=== PATIENT | male | born 1955 | race Caucasian/White ===

== ENCOUNTER 2018-10-21 23:27 | Inpatient (IN) | payer MEDICARE ==
[2018-10-22] MEDS ORDERED: ASPIRIN PO ONE (00:04)
[2018-10-22 00:32] LABS: Basophils # (Auto) 0.1 K/mm3 (0.0-0.1); Basophils % (Auto) 1.2 % (0.0-1.8); Eosinophils # (Auto) 0.1 K/mm3 (0.0-0.4); Eosinophils % (Auto) 1.8 % (0.0-4.3); Hemoglobin 12.9 gm/dl (11.8-15.2); Lymphocytes # (Auto) 1.9 K/mm3 (1.2-5.4); Lymphocytes % (Auto) 23.7 % (13.4-35.0); Mean Corpuscular HGB Conc 35 % (32-34); Mean Corpuscular Volume 93 fl (84-94); Monocytes # (Auto) 1.2 K/mm3 (0.0-0.8); Monocytes % (Auto) 15.5 % (0.0-7.3); Platelet Count 218 K/mm3 (140-440); Red Cell Distribution Width 15.4 % (13.2-15.2)
--- NOTE | 2018-10-22 00:33 | XRay Report ---
PROCEDURE: XR CHEST 1V AP TECHNIQUE: Chest radiograph single view. HISTORY: Chest Pain COMPARISONS: None . FINDINGS: Heart: Normal. Mediastinum/Vessels: Normal. Lungs/Pleural space: The lungs are hyperinflated. There are no infiltrates or effusions.. Bony thorax: No acute osseous abnormality. Life support devices: None. IMPRESSION: Hyperinflation. No acute process in the chest.. This document is electronically signed by Saman Morelos MD., October 22 2018 12:31:52 AM ET
[2018-10-22 00:54] LABS: BUN/Creatinine Ratio 20; Blood Urea Nitrogen 16 mg/dL (9-20); Calcium 9.2 mg/dL (8.4-10.2); Hemolysis Index 6
[2018-10-22] MEDS ORDERED: DUONEB *Not for PRN Use IH ONE (02:38)
[2018-10-22] MEDS ORDERED: SOLU-Medrol IV ONE (02:38)
--- NOTE | 2018-10-22 02:49 | Emergency Department Report ---
HPI - General Chief Complaint: Dyspnea/Respdistress Time Seen by Provider: 10/22/18 02:30 - HPI HPI: 63-year-old male presents to the emergency department with complaint of a one-day history of some midsternal to left-sided chest pain/tightness and some shortness of breath. Patient presents by EMS but admits to being homeless. He is a tobacco smoker but denies any illicit drug use or alcohol use. He has a past medical history of COPD, coronary artery disease with cardiac stent placed and previous AL, and anemia. He has not taken anything for her symptoms prior to presentation. He does not have a primary care physician or cardiologis t. ED Past Medical Hx - Past Medical History Previous Medical History?: Yes Hx Heart Attack/AMI: Yes Hx COPD: Yes Additional medical history: Anemia - Surgical History Past Surgical History?: Yes Hx Coronary Stent: Yes - Social History Smoking Status: Current Every Day Smoker Substance Use Type: None ED Review of Systems ROS: Stated complaint: SOB Other details as noted in HPI Comment: All other systems reviewed and negative Constitutional: denies: chills, fever Eyes: denies: eye pain, vision change ENT: denies: ear pain, throat pain Respiratory: cough, shortness of breath, wheezing Cardiovascular: chest pain. denies: palpitations Gastrointestinal: denies: abdominal pain, vomiting Genitourinary: denies: dysuria, frequency Musculoskeletal: denies: back pain, arthralgia Skin: denies: rash, lesions Neurological: denies: headache, weakness Physical Exam - Physical Exam Vital Signs: Vital Signs 10/21/18 23:40 Temperature 97.6 F Pulse Rate 69 Respiratory 20 Rate Blood Pressure 125/75 O2 Sat by Pulse 92 Oximetry Physical Exam: GENERAL: The patient is well-developed well-nourished. HENT: Normocephalic. Atraumatic. Patient has moist mucous membranes. EYES: Extraocular motions are intact. NECK: Supple. Trachea is midline. CHEST/LUNGS: Mild wheezing throughout the chest. No tachypnea or accessory muscle use. There is no respiratory distress noted. Chest pain is not reproducible to palpation of the chest wall. HEART/CARDIOVASCULAR: Regular. There is no tachycardia. There is no murmur. ABDOMEN: Abdomen is soft, nontender. Patient has normal bowel sounds. There is no abdominal distention. SKIN: Skin is warm and dry. NEURO: The patient is awake, alert, and oriented. The patient is cooperative. The patient has no focal neurologic deficits. The patient has normal speech. MUSCULOSKELETAL: There is no tenderness or deformity. There is no evidence of acute injury. ED Course Vital Signs 10/21/18 23:40 Temperature 97.6 F Pulse Rate 69 Respiratory 20 Rate Blood Pressure 125/75 O2 Sat by Pulse 92 Oximetry ED Medical Decision Making - Lab Data Result diagrams: 10/22/18 00:06 10/22/18 00:06 - EKG Data -: EKG Interpreted by Me EKG shows normal: sinus rhythm, axis, intervals, QRS complexes, ST-T waves Rate: bradycardia (54 bpm) - EKG Data When compared to previous EKG there are: previous EKG unavailable Interpretation: normal EKG (with mild bradycardia) - Radiology Data Radiology results: image reviewed interpreted by me: Chest x-ray shows some hyperinflation of the lungs but no obvious pneumonia, pleural effusions or pneumothorax. - Medical Decision Making The patient presents to the emergency department with the complaint of some left-sided chest pain/tightness and shortness of breath. He is a tobacco smoker with a history of COPD, coronary artery disease, previous AL and cardiac stent. EKG does not show any signs of ST elevation AL. Patient has negative troponins 2 with thus far and a negative d-dimer. His vital signs stable throughout his ED course. He was given some Solu-Medrol and a DuoNeb due to some mild bronchospasm but does not appear in any respiratory distress. 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 He will be admitted to the hospital for further evaluation and treatment and was accepted for admission by the hospitalist, Dr. Mercado. - Differential Diagnosis AL, PE, Pneumonia, COPD, CHF Critical Care Time: No Critical care attestation.: If time is entered above; I have spent that time in minutes in the direct care of this critically ill patient, excluding procedure time. ED Disposition Clinical Impression: Acute chest pain, Bronchospasm Dyspnea Qualifiers: Dyspnea type: shortness of breath Qualified Code(s): R06.02 - Shortness of breath; R06.00 - Dyspnea, unspecified; R06.01 - Orthopnea Disposition: OP ADMIT IP TO THIS HOSP Is pt being admited?: Yes Condition: Fair Instructions: Chest Pain (ED) Referrals: JUSTYNA CANNON MD [Primary Care Provider] - 3-5 Days Time of Disposition: 04:09
[2018-10-22] MEDS ORDERED: K-DUR PO ONE (03:37)
[2018-10-22] MEDS ORDERED: ASPIRIN ONE (03:54)
[2018-10-22] MEDS ORDERED: PROVENTIL IH PRN (04:10)
[2018-10-22] MEDS ORDERED: SODIUM CHLORIDE FLUSH SYRINGE 10 ML IV PRN ×2 (04:10)
[2018-10-22] MEDS ORDERED: ZOFRAN IV PRN (04:10)
[2018-10-22] MEDS ORDERED: TYLENOL PO PRN (04:10)
[2018-10-22] MEDS ORDERED: MORPHINE IV PRN (04:10)
[2018-10-22] MEDS ORDERED: NITROSTAT SL PRN (04:13)
[2018-10-22] MEDS ORDERED: PERCOCET 5/325 PO PRN (04:13)
--- NOTE | 2018-10-22 04:27 | History and Physical Report ---
History of Present Illness Date of examination: 10/22/18 Date of admission: 10/22/2018 Chief complaint: chest pain and SOB History of present illness: 63-year-old male who is an ongoing smoker with history of COPD, CAD, [place] s/p stent was then started to [facility] ED with complaints of shortness of breath, wheezing, chest tightness/chest pain. Patient states that he is currently homeless and does not have any maintenance inhalers. Patient states that his symptoms began yesterday afternoon and worsened as the day progressed. He states that he was standing outside of the [employer] (unsure of location) and he became really short of breath and was unable to breathe. Only after he started experiencing chest tightness/pain. This chest pain nonradiating s ubsternal left side. He rates the pain 4/10. He called EMS and was transported to our facility. Patient also complains of frequent cough with thick yellow sputum production. Denies: Radiation of chest pain, fever, n/v/d, hemoptysis, headache, recent sick contact Past History Past Medical History: acute [place] (s/p stent ), anemia, CAD, COPD Past Surgical History: Other (s/p stent) Social history: smoking (current smoker), other (homeless) Family history: no significant family history Medications and Allergies Allergies Allergy/AdvReac Type Severity Reaction Status Date / Time Penicillins Allergy Hives Verified 10/22/18 00:03 Active Meds: Active Medications Acetaminophen (Tylenol) 650 mg PO Q4H PRN PRN Reason: Pain MILD(1-3)/Fever >100.5/LE Albuterol (Proventil) 2.5 mg IH Q3HRT PRN PRN Reason: Shortness Of Breath Albuterol/Ipratropium (Duoneb *Not For Prn Use*) 1 ampul IH Q6HRT DORYS Aspirin (Baby Aspirin) 81 mg PO QDAY DORYS Atorvastatin Calcium (Lipitor) 40 mg PO QHS DORYS Budesonide (Pulmicort) 0.5 mg IH Q12HRT DORYS Enoxaparin Sodium (Lovenox) 40 mg SUB-Q QDAY DORYS Morphine Sulfate (Morphine) 2 mg IV Q4H PRN PRN Reason: Pain, Moderate (4-6) Stop: 10/23/18 23:59 Nitroglycerin (Nitrostat) 0.4 mg SL Q5M PRN PRN Reason: Chest Pain Ondansetron HCl (Zofran) 4 mg IV Q8H PRN PRN Reason: Nausea And Vomiting Oxycodone/Acetaminophen (Percocet 5/325) 1 tab PO Q6H PRN PRN Reason: Pain, Moderate (4-6) Sodium Chloride (Sodium Chloride Flush Syringe 10 Ml) 10 ml IV BID DORYS Sodium Chloride (Sodium Chloride Flush Syringe 10 Ml) 10 ml IV PRN PRN PRN Reason: LINE FLUSH Sodium Chloride (Sodium Chloride Flush Syringe 10 Ml) 10 ml IV PRN PRN PRN Reason: LINE FLUSH Review of Systems All systems: negative (reviewed and no additional remarkable complaints except as noted below) Cardiovascular: chest pain, shortness of breath Respiratory: cough, cough with sputum (yellow), shortness of breath, wheezing Exam - Physical Exam Narrative exam: Physical exam General appearance: Present: No acute distress, drowsy/confused, middle-age male - EENT Eyes: Present: PERRL, EOM intact ENT: hearing intact, poor dentition - Neck Neck: Present: supple, normal ROM - Respiratory Respiratory effort: Non-labored Respiratory: Scattered wheezing throughout - Cardiovascular Heart rate:54 (bpm) Rhythm: Sinus bradycardia Heart Sounds: Present: S1 & S2. Absent: rub, click - Extremities Extremities: no ischemia, pulses intact, - Peripheral Assessment Peripheral Pulses: within normal limits - Abdominal General gastrointestinal: soft, non-tender, normal bowel sounds - Integumentary Integumentary: Present: warm, dry - Musculoskeletal Musculoskeletal: Able to move extremities -Neurological Neurological: CNII-XII intact - Psychiatric Psychiatric: cooperative - Constitutional Vitals: Temp Pulse Resp BP Pulse Ox 97.6 F 48 L 17 138/59 94 10/21/18 23:40 10/22/18 04:00 10/22/18 04:00 10/22/18 04:00 10/22/18 04:00 Results - Labs CBC & Chem 7: 10/22/18 00:06 10/22/18 00:06 Labs: Laboratory Last Values WBC 8.0 K/mm3 (4.5-11.0) 10/22/18 00:06 RBC 4.00 M/mm3 (3.65-5.03) 10/22/18 00:06 Hgb 12.9 gm/dl (11.8-15.2) 10/22/18 00:06 Hct 37.0 % (35.5-45.6) 10/22/18 00:06 MCV 93 fl (84-94) 10/22/18 00:06 MCH 32 pg (28-32) 10/22/18 00:06 MCHC 35 % (32-34) H 10/22/18 00:06 RDW 15.4 % (13.2-15.2) H 10/22/18 00:06 Plt Count 218 K/mm3 (140-440) 10/22/18 00:06 Lymph % (Auto) 23.7 % (13.4-35.0) 10/22/18 00:06 [place] % (Auto) 15.5 % (0.0-7.3) H 10/22/18 00:06 Eos % (Auto) 1.8 % (0.0-4.3) 10/22/18 00:06 Baso % (Auto) 1.2 % (0.0-1.8) 10/22/18 00:06 Lymph # 1.9 K/mm3 (1.2-5.4) 10/22/18 00:06 [place] # 1.2 K/mm3 (0.0-0.8) H 10/22/18 00:06 Eos # 0.1 K/mm3 (0.0-0.4) 10/22/18 00:06 Baso # 0.1 K/mm3 (0.0-0.1) 10/22/18 00:06 Seg Neutrophils % 57.8 % (40.0-70.0) 10/22/18 00:06 Seg Neutrophils # 4.6 K/mm3 (1.8-7.7) 10/22/18 00:06 < 135.0 ng/mlDDU (0-234) 10/22/18 02:55 Sodium 140 mmol/L (137-145) 10/22/18 00:06 Potassium 3.4 mmol/L (3.6-5.0) L 10/22/18 00:06 Chloride 99.9 mmol/L (98-107) 10/22/18 00:06 Carbon Dioxide 26 mmol/L (22-30) 10/22/18 00:06 18 mmol/L 10/22/18 00:06 BUN 16 mg/dL (9-20) 10/22/18 00:06 0.8 mg/dL (0.8-1.5) 10/22/18 00:06 Estimated GFR > 60 ml/min 10/22/18 00:06 20 % 10/22/18 00:06 Glucose 92 mg/dL (75-100) 10/22/18 00:06 Calcium 9.2 mg/dL (8.4-10.2) 10/22/18 00:06 < 0.010 ng/mL (0.00-0.029) 10/22/18 02:55 NT-Pro-B Natriuret Pep 134.7 pg/mL (0-900) 10/22/18 02:55 - Imaging and Cardiology Chest x-ray: report reviewed ( Hyperinflation. No acute process in the chest.. ), image reviewed Assessment and Plan Assessment and plan: 63-year-old male who is an ongoing smoker with history of COPD, CAD, TX s/p stent was then started to [facility] ED with complaints of shortness of breath, wheezing, chest tightness, non radiating substernal left-sided chest pain for the past day. Troponin negative 2, EKG revealed acute ischemic abnormalities. CXR showed hyperinflation of lungs. Will admit to telemetry. AE COPD Acute Chest Pain ACS R/O Hypokalemia CAD hx [place] s/p stent Chronic Anemia Tobacco abuse Homeless Plan: Continue Supportive Care Continuous telemetry monitoring Cardiac consult pending Scheduled DuoNeb's and Pulmicort, albuterol when necessary Solu-Medrol 80 mg every 8 hours Start Levaquin 500 mg every 24 hours Start Mucinex Monitor Hgb; transfuse as needed Counseled for smoking cessation, refuses nicotine patch Monitor electrolytes, replete as needed Mild hypokalemia; Received by mouth potassium 30 mEq in ED UDS Pending Case management consult pending placement assistance DVT PPX on Lovenox Advance Directives: No VTE prophylaxis?: Chemical Plan of care discussed with patient/family: Yes
--- NOTE | 2018-10-22 04:27 | Event Note ---
63m w pmh of copd, cad sp stent, hx of [place], ongoing every day smoker -He presents to the ER with 1 day of shortness of breath wheezing and chest tightness -Symptoms are consistent with COPD exacerbation, steroids nebs RT consult -His oxygen saturation was 93 in triage and increased to 96 after breathing treatments -Chest pain is most likely related to COPD exacerbation, however given the patient's history of CAD it would be prudent to obtain a stress test after COPD has improved dx copd exacerbation chest pain ongoing tobacco abuse, cessation counseling performed for 10 minutes, nicotine patches as needed
[2018-10-22 05:46] LABS: Amphetamine Screen,Urine PRESUMPTIVE NEGATIVE; Benzodiazepines Screen,Urine PRESUMPTIVE NEGATIVE; Cannabinoid Screen,Urine PRESUMPTIVE NEGATIVE; Cocaine Screen,Urine PRESUMPTIVE NEGATIVE; Methadone Screen,Urine PRESUMPTIVE NEGATIVE; Opiate Screen,Urine PRESUMPTIVE NEGATIVE
[2018-10-22] MEDS: SOLU-Medrol IV SCH ×3 (06:38→22:06)
[2018-10-22] MEDS: PULMICORT IH SCH ×2 (08:38→20:58)
[2018-10-22] MEDS: DUONEB *Not for PRN Use IH SCH ×3 (08:38→20:58)
[2018-10-22] MEDS: LOVENOX SUB-Q SCH (09:50)
[2018-10-22] MEDS: LEVAQUIN 500MG/100ML 500 MG/100 ML BAG IV SCH (09:50)
[2018-10-22] MEDS: MUCINEX ER PO SCH ×2 (09:50→22:06)
[2018-10-22] MEDS: SODIUM CHLORIDE FLUSH SYRINGE 10 ML IV SCH ×2 (09:51→22:07)
--- NOTE | 2018-10-22 12:23 | Event Note ---
Date: 10/22/18 copd better, not on O2, walking around, she having left sided chest pains, Ordered stress test for tomorrow.
[2018-10-23 05:42] LABS: Basophils % (Auto) 0.3 % (0.0-1.8); Hematocrit 36.5 % (35.5-45.6); Hemoglobin 12.3 gm/dl (11.8-15.2); Lymphocytes # (Auto) 0.7 K/mm3 (1.2-5.4); Mean Corpuscular HGB Conc 34 % (32-34); Mean Corpuscular Volume 92 fl (84-94); Monocytes # (Auto) 1.5 K/mm3 (0.0-0.8); Monocytes % (Auto) 15.3 % (0.0-7.3); Platelet Count 197 K/mm3 (140-440); Red Blood Count 3.98 M/mm3 (3.65-5.03); Red Cell Distribution Width 14.9 % (13.2-15.2)
[2018-10-23 06:01] LABS: BUN/Creatinine Ratio 29; Blood Urea Nitrogen 23 mg/dL (9-20); Calcium 9.4 mg/dL (8.4-10.2); Hemolysis Index 2
[2018-10-23] MEDS: SOLU-Medrol IV SCH ×3 (06:32→22:36)
[2018-10-23] MEDS ORDERED: LEXISCAN IV ONE ×2 (08:07→08:14)
[2018-10-23] MEDS: DUONEB *Not for PRN Use IH SCH ×2 (09:05→22:45)
[2018-10-23] MEDS: PULMICORT IH SCH ×2 (09:05→22:45)
[2018-10-23] MEDS ORDERED: PROVENTIL IH ONE (09:43)
[2018-10-23] MEDS: BABY ASPIRIN PO SCH (12:33)
[2018-10-23] MEDS: LOVENOX SUB-Q SCH (12:34)
[2018-10-23] MEDS: SODIUM CHLORIDE FLUSH SYRINGE 10 ML IV SCH ×2 (12:35→22:36)
[2018-10-23] MEDS: MUCINEX ER PO SCH ×2 (12:35→22:36)
--- NOTE | 2018-10-23 14:06 | Discharge Summary ---
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 Troponin negative 2, EKG revealed acute ischemic abnormalities. CXR showed hyperinflation of lungs. Discharge Diagnoses: AE COPD, mild, not hypoxic Acute Chest Pain, costochrondritis with coughing, stress test negative ACS ruled out Hypokalemia h/ CAD, [place] s/p stent Chronic Anemia Tobacco abuse, insurance counsel on stopping Homeless Disposition: DC-01 TO HOME OR SELFCARE Time spent for discharge: 31 minutes Core Measure Documentation - Palliative Care Palliative Care/ Comfort Measures: Not Applicable - Core Measures Any of the following diagnoses?: none - VTE Discharge Requirements Deep Vein Thrombosis/Pulmonary Embolism Present on Admission: No Has pt received <5 days of overlap therapy or INR<2.0: No Anticoagulant overlap therapy prescribed at discharge: No Contraindication No Overlap Therapy order at DC: Not Indicated Exam - Physical Exam Narrative exam: Gen: ill appearing NAD a/o HEENT: NCAT, EOMI, PERRL, OP clear Neck: supple, right thyromegaly with goiter CVS/Heart: RRR, normal S1S2, pulses present bilaterally Chest/Lungs: bilateral wheezing but good Breathe sounds, Symmetrical chest expansion, good air entry bilaterally GI/Abdomen: soft, NTND, good bowel sounds, no guarding or rebound /Bladder: no suprapubic tenderness, no CVA or paraspinal tenderness Extermity/Skin: neck swelling, obvious rash face MSK: from x 4 Neuro: no focal deficits, observe walking to the nursing station unassisted without problems Psych: calm, he will talk on a tangent but easily re-directed, he denies SI - Constitutional Vitals: Temp Pulse Resp BP Pulse Ox 98.5 F 95 H 18 107/54 96 10/23/18 04:17 10/23/18 10:40 10/23/18 09:58 10/23/18 10:40 10/23/18 10:40 Plan Activity: other (no strenous activity) Diet: low salt Special Instructions: smoking cessation Follow up with: JUSTYNA CANNON MD [Primary Care Provider] - 3-5 Days Prescriptions: levoFLOXacin [Levaquin] 750 mg PO QDAY #5 tablet methylPREDNISolone [Medrol 4MG DOSEPAK (21 tabs)] 1 dose PO DAILY #1 tab.ds.pk guaiFENesin ER [Mucinex ER] 600 mg PO BID PRN #14 tablet PRN Reason: Cough oxyCODONE /ACETAMINOPHEN [Percocet 5/325 mg] 1 tab PO Q6H PRN #12 tablet PRN Reason: Pain , Severe (7-10) ALBUTEROL Inhaler (OR & NICU) [ProAir HFA Inhaler] 2 puff IH Q4H PRN #1 unit PRN Reason: Shortness Of Breath Budesonide/Formoterol Fumarate [Symbicort 160-4.5 Mcg Inhaler] 2 puff IH BID #1 unit
[2018-10-23] MEDS: LEVAQUIN 500MG/100ML 500 MG/100 ML BAG IV SCH (15:52)
--- NOTE | 2018-10-23 23:04 | Treadmill Report ---
INDICATION: Chest pain. ORDERING PHYSICIAN: Dr. Cyn Gu. FINDINGS: The left ventricular cavity is borderline dilated. There is a borderline left ventricular hypokinesis with an ejection fraction measured at 48%. There is no scintigraphic evidence of myocardial ischemia. There is a slight decrease in counts noted in the inferior wall, both on the rest and stress images, most likely due to overlying diaphragmatic attenuation. CONCLUSION: 1. No scintigraphic evidence of myocardial ischemia. 2. Borderline dilated left ventricular cavity with a borderline hypokinesis, ejection fraction measured at 48%. 3. This is a low risk myocardial perfusion scan associated with a 1-year cardiovascular event rate of less than 1%. [facility]# [id number] MIRIAN/ANTONETTE
[2018-10-24 05:09] VITALS: BP 113/59
[2018-10-24] MEDS: SOLU-Medrol IV SCH (07:16)
--- NOTE | 2018-10-24 08:07 | Progress Note ---
Assessment and Plan Assessment and plan: Patient is a 63-year-old Homeless man with a history of tobacco dependency, COPD, MD CAD s/p stent was then started to [facility] ED with complaints of shortness of breath, wheezing, chest tightness, non radiating substernal left-sided chest pain for the past day. Troponin negative 2, EKG revealed acute ischemic abnormalities. CXR showed hyperinflation of lungs. AE COPD, mild, not hypoxic Acute Chest Pain, costochrondritis with coughing, stress test negative ACS ruled out Hypokalemia h/ CAD, MD s/p stent Chronic Anemia Tobacco abuse, curriculum counselor on stopping Homeless Patient to be discharge History Interval history: Patient was seen and examined. Follow-up on current diagnosis. No overnight events reported to me. Patient denies any chest pain, shortness breath, nausea/vomiting or severe headaches. Imaging, nursing note, chart, labs and old chart reviewed. Discussed with patient. Hospitalist Physical - Physical exam Narrative exam: Gen: ill appearing NAD a/o HEENT: NCAT, EOMI, PERRL, OP clear Neck: supple, right thyromegaly with goiter CVS/Heart: RRR, normal S1S2, pulses present bilaterally Chest/Lungs: bilateral wheezing but good Breathe sounds, Symmetrical chest expan analia, good air entry bilaterally GI/Abdomen: soft, NTND, good bowel sounds, no guarding or rebound /Bladder: no suprapubic tenderness, no CVA or paraspinal tenderness Extermity/Skin: neck swelling, obvious rash face MSK: from x 4 Neuro: no focal deficits, observe walking to the nursing station unassisted without problems Psych: calm, he will talk on a tangent but easily re-directed, he denies SI - Constitutional Vitals: Temp Pulse Resp BP Pulse Ox 97.9 F 61 18 113/59 100 10/24/18 05:08 10/24/18 05:08 10/24/18 05:08 10/24/18 05:08 10/24/18 05:08 Results - Labs CBC & Chem 7: 10/23/18 05:08 10/23/18 05:08 Labs: Laboratory Last Values WBC 9.7 K/mm3 (4.5-11.0) 10/23/18 05:08 RBC 3.98 M/mm3 (3.65-5.03) 10/23/18 05:08 Hgb 12.3 gm/dl (11.8-15.2) 10/23/18 05:08 Hct 36.5 % (35.5-45.6) 10/23/18 05:08 MCV 92 fl (84-94) 10/23/18 05:08 MCH 31 pg (28-32) 10/23/18 05:08 MCHC 34 % (32-34) 10/23/18 05:08 RDW 14.9 % (13.2-15.2) 10/23/18 05:08 Plt Count 197 K/mm3 (140-440) 10/23/18 05:08 Lymph % (Auto) 7.0 % (13.4-35.0) L 10/23/18 05:08 [place] % (Auto) 15.3 % (0.0-7.3) H 10/23/18 05:08 Eos % (Auto) 0.0 % (0.0-4.3) 10/23/18 05:08 Baso % (Auto) 0.3 % (0.0-1.8) 10/23/18 05:08 Lymph # 0.7 K/mm3 (1.2-5.4) L 10/23/18 05:08 [place] # 1.5 K/mm3 (0.0-0.8) H 10/23/18 05:08 Eos # 0.0 K/mm3 (0.0-0.4) 10/23/18 05:08 Baso # 0.0 K/mm3 (0.0-0.1) 10/23/18 05:08 Seg Neutrophils % 77.4 % (40.0-70.0) H 10/23/18 05:08 Seg Neutrophils # 7.5 K/mm3 (1.8-7.7) 10/23/18 05:08 < 135.0 ng/mlDDU (0-234) 10/22/18 02:55 Sodium 139 mmol/L (137-145) 10/23/18 05:08 Potassium 4.2 mmol/L (3.6-5.0) D 10/23/18 05:08 Chloride 99.4 mmol/L (98-107) 10/23/18 05:08 Carbon Dioxide 25 mmol/L (22-30) 10/23/18 05:08 19 mmol/L 10/23/18 05:08 BUN 23 mg/dL (9-20) H 10/23/18 05:08 0.8 mg/dL (0.8-1.5) 10/23/18 05:08 Estimated GFR > 60 ml/min 10/23/18 05:08 29 % 10/23/18 05:08 Glucose 141 mg/dL (75-100) H 10/23/18 05:08 Calcium 9.4 mg/dL (8.4-10.2) 10/23/18 05:08 < 0.010 ng/mL (0.00-0.029) 10/22/18 06:18 NT-Pro-B Natriuret Pep 134.7 pg/mL (0-900) 10/22/18 02:55 Presumptive negative 10/22/18 05:25 Presumptive negative 10/22/18 05:25 Ur Barbiturates Screen Presumptive negative 10/22/18 05:25 Ur Phencyclidine Scrn Presumptive negative 10/22/18 05:25 Ur Amphetamines Screen Presumptive negative 10/22/18 05:25 U Benzodiazepines Scrn Presumptive negative 10/22/18 05:25 Presumptive negative 10/22/18 05:25 U Marijuana (THC) Screen Presumptive negative 10/22/18 05:25 Disclamer 10/22/18 05:25 Active Medications - Current Medications Current Medications: Generic Name Dose Route Start Last Admin Trade Name Freq PRN Reason Stop Dose Admin Acetaminophen 650 mg 10/22/18 04:10 Tylenol PO Q4H PRN Pain MILD(1-3)/Fever >100.5/LE Albuterol 2.5 mg 10/22/18 04:10 10/23/18 09:46 Proventil IH 2.5 mg Q3HRT PRN Administration Shortness Of Breath Albuterol/Ipratropium 1 ampul 10/23/18 08:00 10/23/18 22:45 Duoneb *Not For Prn Use* IH 1 ampul BIDRT DORYS Administration Aspirin 81 mg 10/23/18 10:00 10/23/18 12:33 Baby Aspirin PO 81 mg QDAY DORYS Administration Atorvastatin Calcium 40 mg 10/22/18 22:00 10/23/18 22:36 Lipitor PO 40 mg QHS DORYS Administration Budesonide 0.5 mg 10/22/18 08:00 10/23/18 22:45 Pulmicort IH 0.5 mg Q12HRT DORYS Administration Enoxaparin Sodium 40 mg 10/22/18 10:00 10/23/18 12:34 Lovenox SUB-Q 40 mg QDAY [facility] Administration Guaifenesin 600 mg 10/22/18 10:00 10/23/18 22:36 Mucinex Er PO 600 mg BID [facility] Administration Levofloxacin/Dextrose 500 mg in 100 mls @ 100 mls/hr 10/22/18 10:00 10/23/18 15:52 Levaquin 500mg/100ml IV 100 mls/hr Q24HR [facility] Administration Protocol Methylprednisolone Sodium Succinate 80 mg 10/22/18 06:00 10/24/18 07:16 Solu-Medrol IV Not Given Q8HR [facility] Nitroglycerin 0.4 mg 10/22/18 04:13 Nitrostat SL Q5M PRN Chest Pain Ondansetron HCl 4 mg 10/22/18 04:10 Zofran IV Q8H PRN Nausea And Vomiting Oxycodone/Acetaminophen 1 tab 10/22/18 04:13 10/23/18 12:34 Percocet 5/325 PO 1 tab Q6H PRN Administration Pain, Moderate (4-6) Sodium Chloride 10 ml 10/22/18 10:00 10/23/18 22:36 Sodium Chloride Flush Syringe 10 Ml IV 10 ml BID DORYS Administration Sodium Chloride 10 ml 10/22/18 04:10 10/22/18 06:38 Sodium Chloride Flush Syringe 10 Ml IV 10 ml PRN PRN Administration LINE FLUSH
--- NOTE | 2018-10-24 08:08 | Progress Note ---
Assessment and Plan Assessment and plan: Patient is a 63-year-old Homeless man with a history of tobacco dependency, COPD, LA CAD s/p stent was then started to [facility] ED with complaints of shortness of breath, wheezing, chest tightness, non radiating substernal left-sided chest pain for the past day. Troponin negative 2, EKG revealed acute ischemic abnormalities. CXR showed hyperinflation of lungs. AE COPD, mild, not hypoxic Acute Chest Pain, costochrondritis with coughing, stress test negative ACS ruled out Hypokalemia h/ CAD, LA s/p stent Chronic Anemia Tobacco abuse, certified rehabilitation counselor on stopping Homeless Patient discharged yesterday but wasn't, reason unknown. I spoke with charge nurse Helder and she will investigate. History Interval history: Patient was seen and examined. Follow-up on current diagnosis. No overnight events reported to me. Patient denies any chest pain, shortness breath, nausea/vomiting or severe headaches. Imaging, nursing note, chart, labs and old chart reviewed. Discussed with patient. Hospitalist Physical - Physical exam Narrative exam: Gen: ill appearing NAD a/o HEENT: NCAT, EOMI, PERRL, OP clear Neck: supple, right thyromegaly with goiter CVS/Heart: RRR, normal S1S2, pulses present bilaterally Chest/Lungs: bilateral wheezing but good Breathe sounds, Symmetrical chest expansion, good air entry bilaterally GI/Abdomen: soft, NTND, good bowel sounds, no guarding or rebound /Bladder: no suprapubic tenderness, no CVA or paraspinal tenderness Extermity/Skin: neck swelling, obvious rash face MSK: from x 4 Neuro: no focal deficits, observe walking to the nursing station unassisted without problems Psych: calm, he will talk on a tangent but easily re-directed, he denies SI - Constitutional Vitals: Temp Pulse Resp BP Pulse Ox 97.9 F 61 18 113/59 100 10/24/18 05:08 10/24/18 05:08 10/24/18 05:08 10/24/18 05:08 10/24/18 05:08 Results - Labs CBC & Chem 7: 10/23/18 05:08 10/23/18 05:08 Labs: Laboratory Last Values WBC 9.7 K/mm3 (4.5-11.0) 10/23/18 05:08 RBC 3.98 M/mm3 (3.65-5.03) 10/23/18 05:08 Hgb 12.3 gm/dl (11.8-15.2) 10/23/18 05:08 Hct 36.5 % (35.5-45.6) 10/23/18 05:08 MCV 92 fl (84-94) 10/23/18 05:08 MCH 31 pg (28-32) 10/23/18 05:08 MCHC 34 % (32-34) 10/23/18 05:08 RDW 14.9 % (13.2-15.2) 10/23/18 05:08 Plt Count 197 K/mm3 (140-440) 10/23/18 05:08 Lymph % (Auto) 7.0 % (13.4-35.0) L 10/23/18 05:08 [place] % (Auto) 15.3 % (0.0-7.3) H 10/23/18 05:08 Eos % (Auto) 0.0 % (0.0-4.3) 10/23/18 05:08 Baso % (Auto) 0.3 % (0.0-1.8) 10/23/18 05:08 Lymph # 0.7 K/mm3 (1.2-5.4) L 10/23/18 05:08 [place] # 1.5 K/mm3 (0.0-0.8) H 10/23/18 05:08 Eos # 0.0 K/mm3 (0.0-0.4) 10/23/18 05:08 Baso # 0.0 K/mm3 (0.0-0.1) 10/23/18 05:08 Seg Neutrophils % 77.4 % (40.0-70.0) H 10/23/18 05:08 Seg Neutrophils # 7.5 K/mm3 (1.8-7.7) 10/23/18 05:08 < 135.0 ng/mlDDU (0-234) 10/22/18 02:55 Sodium 139 mmol/L (137-145) 10/23/18 05:08 Potassium 4.2 mmol/L (3.6-5.0) D 10/23/18 05:08 Chloride 99.4 mmol/L (98-107) 10/23/18 05:08 Carbon Dioxide 25 mmol/L (22-30) 10/23/18 05:08 19 mmol/L 10/23/18 05:08 BUN 23 mg/dL (9-20) H 10/23/18 05:08 0.8 mg/dL (0.8-1.5) 10/23/18 05:08 Estimated GFR > 60 ml/min 10/23/18 05:08 29 % 10/23/18 05:08 Glucose 141 mg/dL (75-100) H 10/23/18 05:08 Calcium 9.4 mg/dL (8.4-10.2) 10/23/18 05:08 < 0.010 ng/mL (0.00-0.029) 10/22/18 06:18 NT-Pro-B Natriuret Pep 134.7 pg/mL (0-900) 10/22/18 02:55 Presumptive negative 10/22/18 05:25 Presumptive negative 10/22/18 05:25 Ur Barbiturates Screen Presumptive negative 10/22/18 05:25 Ur Phencyclidine Scrn Presumptive negative 10/22/18 05:25 Ur Amphetamines Screen Presumptive negative 10/22/18 05:25 U Benzodiazepines Scrn Presumptive negative 10/22/18 05:25 Presumptive negative 10/22/18 05:25 U Marijuana (THC) Screen Presumptive negative 10/22/18 05:25 Disclamer 10/22/18 05:25 Active Medications - Current Medications Current Medications: Generic Name Dose Route Start Last Admin Trade Name Freq PRN Reason Stop Dose Admin Acetaminophen 650 mg 10/22/18 04:10 Tylenol PO Q4H PRN Pain MILD(1-3)/Fever >100.5/LE Albuterol 2.5 mg 10/22/18 04:10 10/23/18 09:46 Proventil IH 2.5 mg Q3HRT PRN Administration Shortness Of Breath Albuterol/Ipratropium 1 ampul 10/23/18 08:00 10/23/18 22:45 Duoneb *Not For Prn Use* IH 1 ampul BIDRT DORYS Administration Aspirin 81 mg 10/23/18 10:00 10/23/18 12:33 Baby Aspirin PO 81 mg QDAY DORYS Administration Atorvastatin Calcium 40 mg 10/22/18 22:00 10/23/18 22:36 Lipitor PO 40 mg QHS DORYS Administration Budesonide 0.5 mg 10/22/18 08:00 10/23/18 22:45 Pulmicort IH 0.5 mg Q12HRT DORYS Administration Enoxaparin Sodium 40 mg 10/22/18 10:00 10/23/18 12:34 Lovenox SUB-Q 40 mg QDAY DORYS Administration Guaifenesin 600 mg 10/22/18 10:00 10/23/18 22:36 Mucinex Er PO 600 mg BID [facility] Administration Levofloxacin/Dextrose 500 mg in 100 mls @ 100 mls/hr 10/22/18 10:00 10/23/18 15:52 Levaquin 500mg/100ml IV 100 mls/hr Q24HR DORYS Administration Protocol Methylprednisolone Sodium Succinate 80 mg 10/22/18 06:00 10/24/18 07:16 Solu-Medrol IV Not Given Q8HR [facility] Nitroglycerin 0.4 mg 10/22/18 04:13 Nitrostat SL Q5M PRN Chest Pain Ondansetron HCl 4 mg 10/22/18 04:10 Zofran IV Q8H PRN Nausea And Vomiting Oxycodone/Acetaminophen 1 tab 10/22/18 04:13 10/23/18 12:34 Percocet 5/325 PO 1 tab Q6H PRN Administration Pain, Moderate (4-6) Sodium Chloride 10 ml 10/22/18 10:00 10/23/18 22:36 Sodium Chloride Flush Syringe 10 Ml IV 10 ml BID DORYS Administration Sodium Chloride 10 ml 10/22/18 04:10 10/22/18 06:38 Sodium Chloride Flush Syringe 10 Ml IV 10 ml PRN PRN Administration LINE FLUSH
[2018-10-24] MEDS: PULMICORT IH SCH (08:19)
[2018-10-24] MEDS: DUONEB *Not for PRN Use IH SCH (08:19)
[2018-10-24] MEDS: LOVENOX SUB-Q SCH (10:45)
[2018-10-24] MEDS: BABY ASPIRIN PO SCH (10:45)
[2018-10-24] MEDS: MUCINEX ER PO SCH (10:45)
[2018-10-24] MEDS: LEVAQUIN 500MG/100ML 500 MG/100 ML BAG IV SCH (10:46)
== END 2018-10-24 13:24 | disposition home or self-care (01) | DRG 191 ==
LOC: ED 23:27 → 4A 10-22 04:10 → OBSVTOIN 10-22 04:10
PROVIDERS: ADMIT Internal Medicine; ATTEND Internal Medicine
DX: J44.1 Chronic obstructive pulmonary disease with (acute) exacerbation (principal); E44.0 Moderate protein-calorie malnutrition; Z68.1 Body mass index [BMI] 19.9 or less, adult; I25.10 Atherosclerotic heart disease of native coronary artery without angina pectoris; F17.210 Nicotine dependence, cigarettes, uncomplicated; M94.0 Chondrocostal junction syndrome [Tietze]; I25.2 Old myocardial infarction; J98.01 Acute bronchospasm; E87.6 Hypokalemia; D64.9 Anemia, unspecified; Z59.0 Homelessness; Z95.5 Presence of coronary angioplasty implant and graft
CPT/HCPCS: 36415; 71045; 78452; 80048; 80307; 83880; 84484; 85025; 85379; 93005; 93010; 93017; 94640; 96365; 96372; 96375; G0378; A9270-GY; A9502; J1650; J1956; J2785; J2930

== ENCOUNTER 2018-10-25 22:23 | Emergency (ER) | payer MEDICARE ==
[2018-10-25] MEDS ORDERED: DUONEB *Not for PRN Use IH ONE (23:35)
[2018-10-25 23:48] VITALS: BP 133/85
[2018-10-26 04:07] LABS: Basophils # (Auto) 0.1 K/mm3 (0.0-0.1); Eosinophils # (Auto) 0.2 K/mm3 (0.0-0.4); Eosinophils % (Auto) 1.9 % (0.0-4.3); Hematocrit 40.9 % (35.5-45.6); Hemoglobin 13.6 gm/dl (11.8-15.2); Lymphocytes # (Auto) 1.7 K/mm3 (1.2-5.4); Lymphocytes % (Auto) 20.9 % (13.4-35.0); Mean Corpuscular HGB Conc 33 % (32-34); Mean Corpuscular Volume 92 fl (84-94); Monocytes # (Auto) 1.1 K/mm3 (0.0-0.8); Monocytes % (Auto) 13.6 % (0.0-7.3); Platelet Count 228 K/mm3 (140-440); Red Blood Count 4.46 M/mm3 (3.65-5.03); Red Cell Distribution Width 15.6 % (13.2-15.2)
--- NOTE | 2018-10-26 04:24 | XRay Report ---
PROCEDURE: XR CHEST ROUTINE 2V TECHNIQUE: PA and lateral chest radiographs were obtained. HISTORY: Chest Pain COMPARISONS: 10/22/2018. FINDINGS: Heart: Normal. Mediastinum/Vessels: Normal. Lungs/Pleural space: The lungs are emphysematous. There are no infiltrates or effusions.. Bony thorax: No acute osseous abnormality. IMPRESSION: COPD. No acute process in the chest.. This document is electronically signed by Saman Morelos MD., October 26 2018 04:22:44 AM ET
[2018-10-26 04:37] LABS: BUN/Creatinine Ratio 27; Blood Urea Nitrogen 24 mg/dL (9-20); Calcium 9.6 mg/dL (8.4-10.2); Hemolysis Index 12
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
== END 2018-10-26 05:30 | disposition home or self-care (01) ==
LOC: ED 22:23
DX: R07.89 Other chest pain (principal); I25.2 Old myocardial infarction; J44.9 Chronic obstructive pulmonary disease, unspecified; F17.200 Nicotine dependence, unspecified, uncomplicated; Z95.1 Presence of aortocoronary bypass graft; Z79.82 Long term (current) use of aspirin; Z79.899 Other long term (current) drug therapy; Z88.0 Allergy status to penicillin
CPT/HCPCS: 36415; 71046; 80048; 84484; 85025; 94640; 99284

== ENCOUNTER 2018-10-28 06:18 | Emergency (ER) | payer MEDICARE ==
--- NOTE | 2018-10-28 07:16 | XRay Report ---
PROCEDURE: XR CHEST ROUTINE 2V TECHNIQUE: PA and lateral chest radiographs were obtained. HISTORY: Chest Pain COMPARISONS: 10/26/2018. FINDINGS: No mediastinal shift. Cardiac silhouette is not enlarged. Linear bibasilar scarring. Hyperaeration o f the lungs and flattening of the hemidiaphragms. No pneumothorax, effusion, or focal pulmonary opaci ty. No acute skeletal finding. IMPRESSION: Sequela of COPD without superimposed acute pulmonary abnormality identified. This document is electronically signed by Austin Ware MD., October 28 2018 07:14:30 AM ET
[2018-10-28 07:47] LABS: Basophils % (Auto) 0.5 % (0.0-1.8); Eosinophils # (Auto) 0.2 K/mm3 (0.0-0.4); Eosinophils % (Auto) 1.9 % (0.0-4.3); Hematocrit 37.7 % (35.5-45.6); Hemoglobin 12.8 gm/dl (11.8-15.2); Lymphocytes # (Auto) 1.4 K/mm3 (1.2-5.4); Lymphocytes % (Auto) 14.9 % (13.4-35.0); Mean Corpuscular HGB Conc 34 % (32-34); Mean Corpuscular Volume 91 fl (84-94); Monocytes # (Auto) 1.1 K/mm3 (0.0-0.8); Platelet Count 217 K/mm3 (140-440); Red Blood Count 4.16 M/mm3 (3.65-5.03); Red Cell Distribution Width 14.9 % (13.2-15.2)
[2018-10-28 08:11] LABS: Alanine Aminotransferase 9 units/L (7-56); Albumin 3.7 g/dL (3.9-5); BUN/Creatinine Ratio 34; Blood Urea Nitrogen 24 mg/dL (9-20); Hemolysis Index 8
[2018-10-28] MEDS ORDERED: DUONEB *Not for PRN Use IH ONE ×2 (08:14→14:07)
[2018-10-28] MEDS ORDERED: DELTASONE PO ONE (08:14)
--- NOTE | 2018-10-28 08:18 | Emergency Department Report ---
ED Chest Pain HPI - General Chief Complaint: Chest Pain Stated Complaint: CHEST PAIN VISION PROBLEMS Time Seen by Provider: 10/28/18 07:40 Source: patient, EMS, old records reviewed Mode of arrival: Ambulatory Limitations: No Limitations - History of Present Illness Initial Comments: Patient is a 63-year-old Homeless man with a history of tobacco dependency, COPD, IN and CAD s/p stent who presented to [facility] ED with complaints of nonradiating chest tightness, shortness of breath, and wheezing. Patient has been here several times in the last week for similar symptoms. He is actually admitted here October 22 until the and had a negative stress test presented to the ER on the and was subsequently discharged home. Patient presents complaining of the same chest tightness and presents with wheezing. He has been unable to fill and take any of the recently prescribed medications due to lack of money. - Related Data Previous Rx's Medication Instructions Recorded Last Taken Type oxyCODONE /ACETAMINOPHEN [Percocet 1 tab PO Q6H PRN #12 tablet 10/23/18 Unknown Rx 5/325 mg] ALBUTEROL Inhaler (OR & NICU) 2 puff IH Q4H PRN #1 unit 10/28/18 Unknown Rx [ProAir HFA Inhaler] Acetaminophen [Acetaminophen TAB] 325 mg PO Q4H PRN #30 tablet 10/28/18 Unknown Rx Aspirin [Aspirin BABY CHEW TAB] 81 mg PO QDAY #30 tab.chew 10/28/18 Unknown Rx AtorvaSTATin [Lipitor] 40 mg PO QHS #30 tablet 10/28/18 Unknown Rx Azithromycin [Zithromax Z-WAYLON] 1 dose PO DAILY 5 Days tab 10/28/18 Unknown Rx Budesonide/Formoterol Fumarate 2 puff IH BID #1 unit 10/28/18 Unknown Rx [Symbicort 160-4.5 Mcg Inhaler] guaiFENesin ER [Mucinex ER] 600 mg PO BID PRN #14 tablet 10/28/18 Unknown Rx methylPREDNISolone [Medrol 4MG 1 dose PO DAILY #1 tab.ds.pk 10/28/18 Unknown Rx DOSEPAK (21 tabs)] Allergies Allergy/AdvReac Type Severity Reaction Status Date / Time Penicillins Allergy Hives Verified 10/22/18 00:03 Heart Score - HEART Score History: Slightly suspicious EKG: Non-specific Age: 45-65 Risk factors: > 3 risk factors or hx of atherosclerotic disease Troponin: < normal limit HEART Score: 4 ED Review of Systems ROS: Stated complaint: CHEST PAIN VISION PROBLEMS Other details as noted in HPI Comment: All other systems reviewed and negative ED Past Medical Hx - Past Medical History Hx Heart Attack/AMI: Yes Hx COPD: Yes Additional medical history: Anemia - Surgical History Hx Coronary Stent: Yes - Social History Smoking Status: Current Every Day Smoker - Medications Home Medications: Home Medications Medication Instructions Recorded Confirmed Last Taken Type oxyCODONE /ACETAMINOPHEN [Percocet 1 tab PO Q6H PRN #12 tablet 10/23/18 Unknown Rx 5/325 mg] ALBUTEROL Inhaler (OR & NICU) 2 puff IH Q4H PRN #1 unit 10/28/18 Unknown Rx [ProAir HFA Inhaler] Acetaminophen [Acetaminophen TAB] 325 mg PO Q4H PRN #30 tablet 10/28/18 Unknown Rx Aspirin [Aspirin BABY CHEW TAB] 81 mg PO QDAY #30 tab.chew 10/28/18 Unknown Rx AtorvaSTATin [Lipitor] 40 mg PO QHS #30 tablet 10/28/18 Unknown Rx Azithromycin [Zithromax Z-WAYLON] 1 dose PO DAILY 5 Days tab 10/28/18 Unknown Rx Budesonide/Formoterol Fumarate 2 puff IH BID #1 unit 10/28/18 Unknown Rx [Symbicort 160-4.5 Mcg Inhaler] guaiFENesin ER [Mucinex ER] 600 mg PO BID PRN #14 tablet 10/28/18 Unknown Rx methylPREDNISolone [Medrol 4MG 1 dose PO DAILY #1 tab.ds.pk 10/28/18 Unknown Rx DOSEPAK (21 tabs)] ED Physical Exam - General Limitations: No Limitations - Other Other exam information: General: No limitations, patient is alert in no acute distress Head exam: Atraumatic, normocephalic Eyes exam: Normal appearance ENT: Moist mucous membrane, normal oropharynx Neck exam: Normal inspection, full range of motion, no meningismus nontender Respiratory exam: Bilateral mild expiratory wheezing without tachypnea or accessory muscle use Cardiovascular: Normal rate and rhythm, normal heart sounds Abdomen: Soft, nondistended, and nontender, with normal bowel sounds, no rebound, or guarding Extremity: Full range of motion normal inspection no deformity, no calf tenderness or edema Back: Normal Inspection, full range of motion, no tenderness Neurologic: Alert, oriented x3, cranial nerves intact, no motor or sensory deficit Psychiatric: normal affect, normal mood Skin: Warm, dry, intact ED Course Vital Signs 10/28/18 10/28/18 10/28/18 06:25 08:32 08:39 Temperature 97.7 F Pulse Rate 64 58 L Pulse Rate [ 61 Anterior Bilateral Throughout] Respiratory 18 21 Rate Respiratory 14 Rate [Anterior Bilateral Throughout] Blood Pressure 120/67 134/68 Blood Pressure [Left] O2 Sat by Pulse 96 95 Oximetry 10/28/18 10/28/18 08:57 10:45 Temperature Pulse Rate 53 L Pulse Rate [ 63 Anterior Bilateral Throughout] Respiratory 18 Rate Respiratory 14 Rate [Anterior Bilateral Throughout] Blood Pressure Blood Pressure 129/62 [Left] O2 Sat by Pulse 97 Oximetry - Reevaluation(s) Reevaluation #1: 10/28/18 14:08 SX improved after initial duo neb and po prednisone. Pt has some mild recurrent wheezing without dyspnea. Additional neb ordered. Pt it to be d/nestor into personal care come at 4pm. HILARIO score - Hilario Score Age > 65: (0) No Aspirin use within the Past 7 Days: (1) Yes 3 or more CAD Risk Factors: (1) Yes 2 or more Angina events in past 24 hrs: (0) No Known CAD with more than 50% Stenosis: (0) No Elevated Cardiac Markers: (0) No ST Deviation Greater than 0.5mm: (0) No HILARIO Score: 2 ED Medical Decision Making - Lab Data Result diagrams: 10/28/18 07:33 10/28/18 07:33 Lab Results 10/28/18 10/28/18 Range/Units 07:33 07:33 WBC 9.2 (4.5-11.0) K/mm3 RBC 4.16 (3.65-5.03) M/mm3 Hgb 12.8 (11.8-15.2) gm/dl Hct 37.7 (35.5-45.6) % MCV 91 (84-94) fl MCH 31 (28-32) pg MCHC 34 (32-34) % RDW 14.9 (13.2-15.2) % Plt Count 217 (140-440) K/mm3 Lymph % (Auto) 14.9 (13.4-35.0) % Saunders % (Auto) 12.0 H (0.0-7.3) % Eos % (Auto) 1.9 (0.0-4.3) % Baso % (Auto) 0.5 (0.0-1.8) % Lymph # 1.4 (1.2-5.4) K/mm3 Saunders # 1.1 H (0.0-0.8) K/mm3 Eos # 0.2 (0.0-0.4) K/mm3 Baso # 0.0 (0.0-0.1) K/mm3 Seg Neutrophils % 70.7 H (40.0-70.0) % Seg Neutrophils # 6.5 (1.8-7.7) K/mm3 Sodium 138 (137-145) mmol/L Potassium 3.8 (3.6-5.0) mmol/L Chloride 100.3 (98-107) mmol/L Carbon Dioxide 26 (22-30) mmol/L Anion Gap 16 mmol/L BUN 24 H (9-20) mg/dL Creatinine 0.7 L (0.8-1.5) mg/dL Estimated GFR > 60 ml/min BUN/Creatinine Ratio 34 % Glucose 87 (75-100) mg/dL Calcium 9.0 (8.4-10.2) mg/dL Total Bilirubin 0.70 (0.1-1.2) mg/dL AST 14 (5-40) units/L ALT 9 (7-56) units/L Alkaline Phosphatase 86 (35-129) units/L Troponin T < 0.010 (0.00-0.029) ng/mL Total Protein 6.1 L (6.3-8.2) g/dL Albumin 3.7 L (3.9-5) g/dL Albumin/Globulin Ratio 1.5 % - EKG Data -: EKG Interpreted by Or EKG shows normal: sinus rhythm, axis (qrs 63), QRS complexes (qrsd 99), ST-T waves (no stemi) Rate: normal (61) - Radiology Data Radiology results: report reviewed ROCEDURE: XR CHEST ROUTINE 2V TECHNIQUE: PA and lateral chest radiographs were obtained. HISTORY: Chest Pain COMPARISONS: 10/26/2018. FINDINGS: No mediastinal shift. Cardiac silhouette is not enlarged. Linear bibasilar scarring. Hyperaeration of the lungs and flattening of the hemidiaphragms. No pneumothorax, effusion, or focal pulmonary opacity. No acute skeletal finding. IMPRESSION: Sequela of COPD without superimposed acute pulmonary abnormality identified. - Medical Decision Making Pt with chronic copd with acute exacerbation due to inability to have access to meds. Improved without respiratory distress in ed. patient will be discharged into personal skilled nursing with a prescription for all his recently prescribed medications. He however, will be given Z-Waylon instead of Levaquin. No infiltrate identified on repeated chest x-rays - Differential Diagnosis copd, mi, homeless, unstable angina Critical Care Time: No Critical care attestation.: If time is entered above; I have spent that time in minutes in the direct care of this critically ill patient, excluding procedure time. ED Disposition Clinical Impression: COPD with acute exacerbation Disposition: TO HOME OR SELFCARE Is pt being admited?: No Does the pt Need Aspirin: No Condition: Stable Instructions: Chronic Obstructive Pulmonary Disease (ED) Additional Instructions: Follow up with your doctor or the clinic/doctor provided. Return if symptoms worsen as indicated by your discharge instructions. You have a re-prescribed her recently prescribed medications. Fill them and take them as prescribed. Prescriptions: Acetaminophen [Acetaminophen TAB] 325 mg PO Q4H PRN #30 tablet PRN Reason: Pain MILD(1-3)/Fever >100.5/LE Aspirin [Aspirin BABY CHEW TAB] 81 mg PO QDAY #30 tab.chew AtorvaSTATin [Lipitor] 40 mg PO QHS #30 tablet methylPREDNISolone [Medrol 4MG DOSEPAK (21 tabs)] 1 dose PO DAILY #1 tab.ds.pk guaiFENesin ER [Mucinex ER] 600 mg PO BID PRN #14 tablet PRN Reason: Cough ALBUTEROL Inhaler (OR & NICU) [ProAir HFA Inhaler] 2 puff IH Q4H PRN #1 unit PRN Reason: Shortness Of Breath Budesonide/Formoterol Fumarate [Symbicort 160-4.5 Mcg Inhaler] 2 puff IH BID #1 unit Azithromycin [Zithromax Z-WAYLON] 1 dose PO DAILY 5 Days tab Referrals: VLADIMIR CHAVIRA MD [Staff Physician] - 3-5 Days (Lung doctor ) SANDRA YORK MD [Primary Care Provider] - 3-5 Days (primary care clinic) [facility] [Provider Group] - 3-5 Days (primary care doctor )
[2018-10-28 14:42] VITALS: BP 129/53
== END 2018-10-28 16:00 | disposition home or self-care (01) ==
LOC: ED 06:18
DX: J44.1 Chronic obstructive pulmonary disease with (acute) exacerbation (principal); I25.2 Old myocardial infarction; F17.200 Nicotine dependence, unspecified, uncomplicated; Z95.5 Presence of coronary angioplasty implant and graft; Z86.2 Personal history of diseases of the blood and blood-forming organs and certain disorders involving the immune mechanism; Z88.0 Allergy status to penicillin
CPT/HCPCS: 36415; 71046; 80053; 84484; 85025; 93005; 93010; 94640; 99284; J7512; 99283